=== PATIENT | female | born 1940 | race Caucasian/White ===

== ENCOUNTER 2016-10-22 11:02 | Observation (INO) | payer OTHER, BC ==
[~2016-10-22] VITALS: Ht 165.1 cm; Wt 67.4 kg
[~2016-10-22 11:02] MED LIST: ACIPHEX20 MG PO; ACYCLOVIR200 MG PO; AMITIZA24 MICROGR PO; B-121000 MC2 PO; BENADRYL ALLERG25 MG PO; CALCIUM 500 +1 EACH PO; CALCIUM 600 +1 EACH PO; CARDIZEM CD,CA360 MG PO; COLACE100 MG PO; DILTIAZEM 24HR240 MG PO; FIORICET,ESG1 TABLET PO; FISH OIL 1,0001 EAC7 PO; FISH OIL SOFTG1 EACH PO; GAS-X80 MG PO; JANUVIA100 MG PO; MAVIK1 MG PO; MAVIK2 MG PO; MAXAIR AUTOHALE14 GM IH; MUCINEX D ER T1 EACH PO; MUCINEX1200 MG PO; MULTIVITAMIN1 EAC2 PO; NITROGLYCERIN0.4 MG SL; NITROSTAT0.4 MG SL; PREMPRO 0.621 TABLET PO; PULMICORT FLE180 MCG IH; PULMICORT FLEX90 MCG IH; REPAN 50-325-41 EAC1 PO; SINGULAIR10 MG PO; TRICOR145 MG PO; TYLENOL EXTRA500 MG PO; TYLENOL REGULA325 MG PO; VALTREX1000 MG PO; WARFARIN SODIUM; XARELTO20 MG PO; ZYRTEC10 M3 PO; ZYRTEC5 MG PO
[2016-10-22 12:02] LABS: HEMATOCRIT 43.2 % (36.0-46.0); MCH 28.4 PG (29.0-34.0); MCHC 32.6 G/DL (30.0-36.0); MCV 86.9 FL (83-99); MEAN PLAT.VOLUME 9.6 uM^3 (9.5-12.4); PLATELET COUNT 290 K/uL (156-360); RBC DIS.WIDTH-CV 12.7 % (11.8-14.6); RBC DIS.WIDTH-SD 40.8 % (39-53); RED BLOOD COUNT 4.97 M/uL (3.80-5.20); WHITE BLOOD COUNT 8.3 K/uL (4.1-10.2)
[2016-10-22 12:13] LABS: CHLORIDE 104 mEq/L (99-109); POTASSIUM 4.1 mEq/L (3.7-5.4); SODIUM 142 mEq/L (136-147)
[2016-10-22 12:15] LABS: GLUCOSE 106 mg/dL (70-99)
[2016-10-22 12:16] LABS: ANION GAP 13 MEQ/L (2-14)
[2016-10-22 12:18] LABS: GFR ESTIMATE (CALCULATED) > 59 mL/min/
[2016-10-22 12:19] LABS: UREA NITROGEN (BUN) 18 mg/dL (9-23)
[2016-10-22 12:22] LABS: TROP-I INTERPRETATION NEGATIVE; TROPONIN-I < 0.01 ng/mL (0.0-0.30)
[2016-10-22] MEDS ORDERED: MAVIK1 MG PO (14:54)
[2016-10-22] MEDS ORDERED: CALCIUM 600 +1 EAC9 PO (14:56)
[2016-10-22] MEDS ORDERED: METRO CREAM 0.745 GM TP (15:37)
[2016-10-22] MEDS ORDERED: NYSTATIN-TRIAMC15 GM TP (15:38)
[2016-10-22] MEDS ORDERED: RESTASIS 01 DROP/0.4 BOTH EYES (15:38)
[2016-10-22] MEDS ORDERED: VITAMIN D31000 UNI2 PO (15:39)
[2016-10-22] MEDS ORDERED: PROBIOTIC1 EAC1 PO (15:40)
[2016-10-22 15:41] VITALS: BP 147/65
[2016-10-22 15:58] LABS: TROP-I INTERPRETATION NEGATIVE; TROPONIN-I < 0.01 ng/mL (0.0-0.30)
[2016-10-22 20:00] VITALS: BP 157/72
[2016-10-22 21:19] LABS: TROP-I INTERPRETATION NEGATIVE; TROPONIN-I < 0.01 ng/mL (0.0-0.30)
[2016-10-23] VITALS: BP 125/58
[2016-10-23 04:08] VITALS: BP 136/68
[2016-10-23 06:33] LABS: HEMATOCRIT 38.6 % (36.0-46.0); MCH 27.3 PG (29.0-34.0); MCHC 31.1 G/DL (30.0-36.0); MCV 87.9 FL (83-99); MEAN PLAT.VOLUME 9.5 uM^3 (9.5-12.4); PLATELET COUNT 242 K/uL (156-360); RBC DIS.WIDTH-CV 12.9 % (11.8-14.6); RBC DIS.WIDTH-SD 41.2 % (39-53); RED BLOOD COUNT 4.39 M/uL (3.80-5.20); WHITE BLOOD COUNT 7.6 K/uL (4.1-10.2)
[2016-10-23 06:41] LABS: ANION GAP 8 MEQ/L (2-14); CHLORIDE 106 MEQ/L (99-109); GFR ESTIMATE (CALCULATED) > 59 mL/min/; GLUCOSE 93 mg/dL (70-99); POTASSIUM 4.1 MEQ/L (3.7-5.4); SAMPLE HEMOLYSIS CHECK 0; SAMPLE ICTERIC CHECK 0; SAMPLE LIPEMIA CHECK 0; SODIUM 140 MEQ/L (136-147); UREA NITROGEN (BUN) 20 mg/dL (9-23)
[2016-10-23 07:05] VITALS: BP 141/54
[2016-10-23] MEDS ORDERED: PRAVASTATIN SOD40 MG PO (07:33)
== END 2016-10-23 09:26 | disposition home or self-care (01) ==
LOC: EME 11:02 → EDOF 13:28 → 5WEST 14:49
PROVIDERS: Emergency Medicine; Hospitalist
DX: R07.89 Other chest pain (principal); I10 Essential (primary) hypertension; I25.10 Atherosclerotic heart disease of native coronary artery without angina pectoris; K21.9 Gastro-esophageal reflux disease without esophagitis; I48.0 Paroxysmal atrial fibrillation; Z79.01 Long term (current) use of anticoagulants; E53.8 Deficiency of other specified B group vitamins; Z88.0 Allergy status to penicillin; Z88.2 Allergy status to sulfonamides; Z91.040 Latex allergy status
CPT/HCPCS: 71020; 80048; 84484; 85027; 93005; 99281; 99285; G0378

== ENCOUNTER 2017-06-23 09:57 | Emergency (ER) | payer OTHER, BC ==
[~2017-06-23] VITALS: Ht 165.1 cm; Wt 66.1 kg
[~2017-06-23 09:57] MED LIST changes: +CALCIUM 600 +1 EAC9 PO; +METRO CREAM 0.745 GM TP; +NYSTATIN-TRIAMC15 GM TP; +PRAVASTATIN SOD40 MG PO; +PROBIOTIC1 EAC1 PO; +RESTASIS 01 DROP/0.4 BOTH EYES; +VITAMIN D31000 UNI2 PO
[2017-06-23 10:19] LABS: HEMATOCRIT 46.4 % (36.0-46.0); MCH 28.9 PG (29.0-34.0); MCHC 32.8 G/DL (30.0-36.0); MCV 88.2 FL (83-99); MEAN PLAT.VOLUME 9.4 uM^3 (9.5-12.4); PLATELET COUNT 260 K/uL (156-360); RBC DIS.WIDTH-SD 41.9 % (39-53); RED BLOOD COUNT 5.26 M/uL (3.80-5.20); WHITE BLOOD COUNT 12.2 K/uL (4.1-10.2)
[2017-06-23 10:27] LABS: CHLORIDE 106 mEq/L (99-109); POTASSIUM 4.4 mEq/L (3.7-5.4); SODIUM 141 mEq/L (136-147)
[2017-06-23 10:29] LABS: GLUCOSE 137 mg/dL (70-99)
[2017-06-23 10:31] LABS: ANION GAP 10 MEQ/L (2-14); TOTAL BILIRUBIN 0.4 mg/dL (0.0-1.0)
[2017-06-23 10:33] LABS: ALKALINE PHOSPHATASE 55 IU/L (3-129); GFR ESTIMATE (CALCULATED) > 59 mL/min/
[2017-06-23 10:34] LABS: UREA NITROGEN (BUN) 28 mg/dL (9-23)
[2017-06-23 14:04] LABS: ADD MIUA? YES; BILIRUBIN NEGATIVE; BLOOD NEGATIVE; COLOR YELLOW ((YELLOW)); GLUCOSE (STRIP) 50; KETONES NEGATIVE; LEUKOCYTES TRACE; NITRITE NEGATIVE; PROTEIN (STRIP) NEGATIVE; UROBILINOGEN 0.2 MG/DL (0.2-1.0)
[2017-06-23 14:12] LABS: BACTERIA NONE SEEN /HPF; EPITHELIAL CELLS RARE /HPF; MUCUS TRACE /LPF; RED BLOOD CELLS 0-5 /HPF (0-5); UCUL ADDED? NO; WHITE BLOOD CELLS 0-5 /HPF (0-5)
[2017-06-23 14:36] LABS: LIPASE 11 U/L (1.0-51.0)
[2017-06-23] MEDS ORDERED: ZOFRAN ODT4 MG PO (14:44)
[2017-06-23 14:45] LABS: SPECIFIC GRAVITY 1.056 (1.000-1.030)
[2017-06-23 15:20] VITALS: BP 110/56
== END 2017-06-23 15:20 | disposition home or self-care (01) ==
LOC: EME 09:57
DX: A08.4 Viral intestinal infection, unspecified (principal); E86.0 Dehydration; E11.9 Type 2 diabetes mellitus without complications; I10 Essential (primary) hypertension; E78.5 Hyperlipidemia, unspecified; Z79.84 Long term (current) use of oral hypoglycemic drugs; J45.909 Unspecified asthma, uncomplicated; I25.2 Old myocardial infarction; K21.9 Gastro-esophageal reflux disease without esophagitis; Z85.3 Personal history of malignant neoplasm of breast; Z91.040 Latex allergy status; Z88.2 Allergy status to sulfonamides; Z88.6 Allergy status to analgesic agent; Z88.8 Allergy status to other drugs, medicaments and biological substances
CPT/HCPCS: 74177; 80053; 81003; 83690; 85027; 99281; 99284; J2405; J7030